=== PATIENT | female | born 2000 | race Caucasian/White ===

== ENCOUNTER 2022-05-10 14:00 | Emergency (ER) | payer BC, SELFPAY ==
[2022-05-10 14:15] VITALS: BP 119/71; PULSE 77; RESP 16; TEMP 36.6; O2SAT 98; BMI 22.4
[2022-05-10] MEDS: KETOROLAC 30 MG/ML VIAL 15 MG IM (16:40)
[2022-05-10] MEDS: DOXYCYCLINE HYCLATE 100 MG TABLET PO (16:40)
--- NOTE | 2022-05-10 18:42 | ED.SKABFB ---
HPI - Skin/Abscess/Foreign Bdy <AIDEE Simon - Last Filed: 05/10/22 18:54> General Chief complaint: Skin/Abscess/Foreign Body Stated complaint: Possible Bartholin cyst Time Seen by Provider: 05/10/22 15:53 Source: patient Mode of arrival: Ambulatory Limitations: no limitations History of Present Illness HPI narrative: This is a 22-year-old female presents to the emergency department with a possible cyst versus abscess over her clitoris. Patient states that it has been swelling over the last four days but she noticed tenderness in the area approximately one week ago. She states that she has been trying to pop it injuring it with multiple attempts at home, she states that she got some clear fluid come out yesterday. Patient denies any fever, fatigue, feeling ill, or other symptoms. She denies any history of this in the past, she is wondering if this is a Bartholin cyst. Patient denies any dysuria, suprapubic pain or pressure, any pelvic tenderness other than this one area of pain in edema. She says it is a little bit red. Related Data Previous Rx's Medication Instructions Recorded doxycycline hyclate 100 mg tablet 100 mg PO BID 5 days #10 tabs 05/10/22 lidocaine 4 % topical cream 1 applic topical BID PRN pain #15 05/10/22 grams Allergies Allergy/AdvReac Type Severity Reaction Status Date / Time amoxicillin Allergy Verified 05/10/22 14:15 Review of Systems <AIDEE Simon - Last Filed: 05/10/22 18:54> Review of Systems Narrative: General: denies fever, chills Head/Neck: denies headache, neck pain Eyes: denies visual changes, eye pain Cardio: denies chest pain, palpitations Respiratory: denies shortness of breath, cough GI: denies abdominal pain, nausea, vomiting, or diarrhea : denies dysuria, hematuria or flank pain MSK: denies new joint pain, muscle weakness or swelling Skin: denies rash, itching, endorses an abscess versus a cyst above and to the right of her clitoris Neuro: denies numbness, tingling, dizziness Patient History <AIDEE Simon - Last Filed: 05/10/22 18:54> Social History Smoking Status: Never smoker Smoking Status: Never smoker alcohol intake frequency: a few times a week Substance Use Type: does not use Exam <AIDEE Simon - Last Filed: 05/10/22 18:54> Narrative Exam Narrative: Independently reviewed vitals signs and nursing notes. General: cooperative, comfortable, in no acute distress, well groomed Head: atraumatic, symmetrical facial expressions Neck: supple Eyes: equal round and reactive, EOMI, conjunctiva normal Nose: nares patent, no rhinorrhea Mouth/Throat: moist mucus membranes Cardiovascular: regular rate and rhythm, no peripheral edema, warm extremities Respiratory: normal effort, able to speak in complete sentences, no audible wheezing, stridor, or rales. No retractions or tachypnea. GI: abdomen soft, nontender to palpation, nondistended, no masses, no exquisite tenderness with exam, without guarding or rebound, no suprapubic tenderness the palpation [employer]: Abscess versus cyst superior and to the right of the clitoris, fluctuant, erythematous, and very superficial. Does not involve the clitoris and is nearby but not within MSK: moves all extremities, neurovascularly intact, no weakness, normal tone Skin: brisk capillary refill, no rash, no erythema she Neuro: normal speech and cognition, A&O x3 Psych: mental status is grossly normal, congruent mood, normal affect, pleasant and cooperative Initial Vital Signs Initial Vital Signs: Vital Signs Temperature 97.9 F 05/10/22 14:15 Pulse Rate 77 05/10/22 14:15 Respiratory Rate 16 05/10/22 14:15 Blood Pressure 119/71 05/10/22 14:15 Pulse Oximetry 98 05/10/22 14:15 Oxygen Delivery Method 05/10/22 14:15 <Shilpa Youssef DO - Last Filed: 05/11/22 07:38> Initial Vital Signs Initial Vital Signs: Vital Signs Temperature 97.9 F 05/10/22 14:15 Pulse Rate 77 05/10/22 14:15 Respiratory Rate 16 05/10/22 14:15 Blood Pressure 119/71 05/10/22 14:15 Pulse Oximetry 98 05/10/22 14:15 Oxygen Delivery Method 05/10/22 14:15 Procedures <AIDEE Simon - Last Filed: 05/10/22 18:54> Abscess I/D I&D #1: Site: other (vulvar) Sedation/analgesia: none Local Anesthetic: lidocaine 1% Amount of anesthesia used (mL): 0.2 Technique: needle aspiration (Purulent drainage, obtained sample for culture) Amount of fluid expressed (mL): 5 Irrigation: No Packing used?: none Complications: other (none) Course <AIDEE Simon - Last Filed: 05/10/22 18:54> Orders Ordered: Discontinued Medications Doxycycline Hyclate (Doxycycline Hyclate 100 Mg Tablet) 100 mg PO NOW ONE Stop: 05/10/22 16:36 Last Admin: 05/10/22 16:40 Dose: 100 mg Documented By: AT Ketorolac Tromethamine (Ketorolac 30 Mg/Ml Vial) 15 mg IM NOW ONE Stop: 05/10/22 15:54 Last Admin: 05/10/22 16:40 Dose: 15 mg Documented By: AT Lidocaine/Epinephrine (Lidocaine 1% W/Epi) 5 ml SUBCUT NOW ONE Stop: 05/10/22 15:54 Last Admin: 05/10/22 16:08 Dose: Not Given Documented By: AT Vital Signs Vital signs: Vital Signs - 8 hr 05/10/22 14:15 Temperature 97.9 F Pulse Rate 77 Respiratory Rate 16 Blood Pressure 119/71 Pulse Oximetry 98 Oxygen Delivery Method Room Air <Shilpa Youssef DO - Last Filed: 05/11/22 07:38> Orders Ordered: Discontinued Medications Doxycycline Hyclate (Doxycycline Hyclate 100 Mg Tablet) 100 mg PO NOW ONE Stop: 05/10/22 16:36 Last Admin: 05/10/22 16:40 Dose: 100 mg Documented By: AT Ketorolac Tromethamine (Ketorolac 30 Mg/Ml Vial) 15 mg IM NOW ONE Stop: 05/10/22 15:54 Last Admin: 05/10/22 16:40 Dose: 15 mg Documented By: AT Lidocaine/Epinephrine (Lidocaine 1% W/Epi) 5 ml SUBCUT NOW ONE Stop: 05/10/22 15:54 Last Admin: 05/10/22 16:08 Dose: Not Given Documented By: AT Vital Signs Vital signs: Vital Signs - 8 hr 05/10/22 14:15 Temperature 97.9 F Pulse Rate 77 Respiratory Rate 16 Blood Pressure 119/71 Pulse Oximetry 98 Oxygen Delivery Method Room Air MDM - Skin/Abscess/Foreign Bdy <Una Thierry ChavezjeremiahAIDEE - Last Filed: 05/10/22 18:54> [facility] Narrative Medical decision making narrative: This is a 22-year-old female presents to the emergency department with a vulvar abscess and concern for a Bartholin cyst. On exam, there was fluctuance and erythema, approximately 2 cm in diameter, erythematous, and superior and to the right of her clitoris. Consultation with Dr. Woodson who recommends I&D drainage only of superficial and discussed complications and risks. After consultation, she agrees with plan of care for antibiotics if purulence drainage. I&D was completed with a bleb of lidocaine for anesthetic, needle aspiration with true over 5 mL of purulence drainage and purulent drainage was squeezed out of the drainage hole. Wound culture is pending. Started patient on doxycycline x5 days b.i.d. dosing, encourage patient to follow-up with OBGYN if she has any worsening of this, continue warm compresses as she has been for the last few days. No wick was placed as drainage hole was a tiny needle and did not want to cause any nerve damage. Patient tolerated procedure well without any significant pain, she understands to follow-up with OBGYN if this persists, she denies any dysuria, systemic symptoms of illness, fever, abnormal vaginal discharge, or suprapubic pressure/pain. Patient is appropriate and amenable to discharge home. Vital signs are stable on repeat examination is unremarkable. Patient has been informed of results. Patient has been given strict return to ER precautions for any new or worsening symptoms. Patient understands to follow up closely with outpatient providers as instructed. Patient understands plan and agrees to discharge home. All questions and concerns answered at this time. Discharge Plan Departure Patient Disposition: Home Clinical Impression: Abscess of skin or subcutaneous tissue Instructions: DI for Vulvar Abscess Activity Restrictions/Additional Instructions: *You have been diagnosed with an abscess of your vulva. Please continue warm compresses to help express the pus. Take ibuprofen every 6-8 hours as needed, you can use lidocaine cream for pain and tenderness while you are walking or for temporary relief of pain. That you feel, he can use ice for temporary relief pain and swelling as well. Please follow-up with OBGYN if this is not improved, or return to the emergency department if you develop a fever and start feeling ill, please return if you have any other complications. Thank you for trusting us with your care, I hope you feel better soon. We will call you if your wound culture grows a bacteria that needs a different antibiotic. *What to do: *Please continue to take your regular medications as directed. [x ] New medication prescriptions sent to your pharmacy: [ [facility]] [ ] New medication written as a paper prescription [ ] No new medications given *Please follow up with your primary care provider in 2-3 days, call for an appointment. Let them know you were seen in the Emergency Department and that we asked that you be seen for follow-up. We will electronically transmit a record of today's note if your PCP is in our system *If you do not have a primary care provider please contact [phone] to establish care with one of the [facility] primary care providers. *Return to Emergency Department if you should have any new, worsening or concerning symptoms, such as [fever greater than 101F, chills, worsening pain, persistent vomiting or other bothersome symptoms] Prescriptions: New doxycycline hyclate 100 mg tablet 100 mg PO BID 5 Days Qty: 10 0RF lidocaine 4 % cream 1 applic topical BID PRN (Reason: pain) Qty: 15 0RF Rx Instructions: Apply small amount where it is painful a few times each day. Referrals: Annie Woodson MD [Physician] - 3-5 days (If you have any worsening, please call and schedule an appointment for follow-up with OBGYN.) Visit Report Forms: Patient Portal/API <Shilpa Youssef DO - Last Filed: 05/11/22 07:38> [facility] ED Attending Connieature Attestation: I was immediately available in the department for consultation. Documentation has been reviewed. I agree with assessment and plan.
== END 2022-05-10 16:52 | disposition home or self-care (01) ==
PROVIDERS: Emergency Provider Nurse Practitioner Critical Care Medicine
DX: N76.4 Abscess of vulva (principal)
CPT/HCPCS: 10060; 96372; 99283; J1885